=== PATIENT | male | born 1995 | race Native Hawaiian/Other Pacific Islander ===

== ENCOUNTER 2018-09-29 11:51 | Day surgery (SDC) | payer BC ==
[2018-09-26 11:25] LABS: BASOPHILS % (AUTO) 0.4 % (0-1); EOSINOPHILS # (AUTO) 0.1 X10'3 (0-0.9); EOSINOPHILS % (AUTO) 1.2 % (0-6); LYMPHOCYTES # (AUTO) 1.6 X10'3 (1.1-4.8); LYMPHOCYTES % (AUTO) 29.2 % (21-51); MEAN CORPUSCULAR HEMOGLOBIN 29.8 PG (27.0-31.0); MEAN CORPUSCULAR HGB CONC 34.1 g/dL (33.0-36.5); MEAN CORPUSCULAR VOLUME 87.3 FL (78-98); MEAN PLATELET VOLUME 8.3 FL (7.4-10.4); MONOCYTES # (AUTO) 0.5 X10'3 (0-0.9); MONOCYTES % (AUTO) 9.4 % (2-12); NEUTROPHILS # (AUTO) 3.4 X10'3 (1.8-7.7); NEUTROPHILS % (AUTO) 59.8 % (42-75); PRE OP HEMOGLOBIN 17.4 g/dL (14.0-17.9); PRE OP PLATELET COUNT 219 X10'3 (140-440); RED BLOOD COUNT 5.84 X10'6 (4.70-6.10); RED CELL DISTRIBUTION WIDTH 13.6 % (11.5-14.5)
[2018-09-29] VITALS (17 sets, daily range): BP systolic 99–140; BP diastolic 51–85
[~2018-09-29] VITALS: Ht 180.3 cm; Wt 77.1 kg
[~2018-09-29 11:51] MED LIST: BUPIVAcaine/PF 2.5 mg/ml (0.25%) 30ml vial ONE; NO HOME MEDS
[2018-09-29] MEDS ORDERED: famotidine 20mg tablet PO ONE (12:00)
[2018-09-29] MEDS ORDERED: VANCOMYCIN INJ 1000 MG in NORMAL SALINE 250ml IV.SOLN IV ONE (12:00)
[2018-09-29] MEDS ORDERED: cefazolin/dext.iso 2gm/100 ML IV ONE (12:00)
[2018-09-29] MEDS ORDERED: vancomycin inj 1,500 MG in normal saline 300ml IV soln IV ONE (12:00)
[2018-09-29] MEDS: ringers solution, lacted 1,000 ML IV SCH ×2 (12:31→16:40)
[2018-09-29] MEDS ORDERED: dexamethasone sod phosphate 10mg/ml inj ONE (12:58)
[2018-09-29] MEDS ORDERED: sevoflurane 250ml liquid IH ONE (12:58)
[2018-09-29] MEDS ORDERED: LIDOcaine 1%/PF 5ML 10 MG/ML VIAL ONE (12:58)
[2018-09-29] MEDS ORDERED: midazolam 2 mg/2 ml injection ONE (13:03)
[2018-09-29] MEDS ORDERED: fentaNYL/PF 50MCG/1 ML 2ML syringe ONE (13:03)
[2018-09-29] MEDS ORDERED: ondansetron/PF 4mg/2ml inj ONE (13:10)
[2018-09-29] MEDS ORDERED: propofol inj 20 ML IV ONE (13:25)
[2018-09-29] MEDS ORDERED: ringers solution, lacted 1,000 ML IV SCH (13:36)
[2018-09-29] MEDS ORDERED: morphine 4 MG/ML inj SYRINge IV PRN ×2 (13:40)
[2018-09-29] MEDS ORDERED: ondansetron/PF 4mg/2ml inj IV PRN ×2 (13:40→15:35)
[2018-09-29] MEDS ORDERED: hydrALAZINE 20mg/ml inj. IV PRN (13:40)
[2018-09-29] MEDS ORDERED: labetalol 20mg/4ml (5mg/ml) syringe IV PRN (13:40)
[2018-09-29] MEDS ORDERED: meperidine/PF 25mg/ml syringe IV PRN ×2 (13:40)
[2018-09-29] MEDS ORDERED: ketorolac trometh. 30mg/ml inj. ONE (13:44)
[2018-09-29] MEDS ORDERED: Thrombin (Bovine) 5,000 unit vial TP ONE (14:35)
[2018-09-29] MEDS ORDERED: gelatin sponge, absorbable (Gelfoam 100) sponge TP ONE (14:37)
[2018-09-29] MEDS ORDERED: meperidine/PF 50mg/ml syringe ONE (14:51)
--- NOTE | 2018-09-29 15:20 | NUR ---
Received from OR via BED, accompanied by Anesthesiologist DR VASQUEZ--- and report given by Anesthesiolgist. PATIENT A&OX4, DENIES PAIN, V/S WNL, NEUROVASCULAR CHECKS INTACT, 20G PIV LUE, SCD ON, DRESSING SPLINT TO RUPankaj CDI
[2018-09-29] MEDS ORDERED: HYDROmorphone inj. 0.5 MG/0.5 ML DISP.SYRIN IV PRN (15:35)
[2018-09-29] MEDS ORDERED: HYDROcodone/acetaminophen 10/325mg tab PO PRN ×2 (15:35)
[2018-09-29] MEDS ORDERED: acetaminophen 325mg tablet PO PRN (15:35)
[2018-09-29] MEDS ORDERED: diphenhydrAMINE 25mg capsule PO PRN ×2 (15:35)
[2018-09-29] MEDS ORDERED: magnesium hydroxide 30ml (MOM) UD suspension PO PRN (15:35)
[2018-09-29] MEDS ORDERED: bisacodyl 10mg suppository rectal RC PRN (15:35)
--- NOTE | 2018-09-29 16:20 | NUR ---
PATIENT A&OX4, DENIES PAIN, V/S WNL, NEUROVASCULAR CHECKS INTACT, 20G PIV LUE, SCD ON, DRESSING SPLINT TO RUE CDI. PATIENT TAKEN TO ORTHO WITH ALL BELONGINGS AND HOOKED UP TO MONITORS IN ROOM AND REPORT GIVEN TO RN WHO HAS TAKEN OVER PATIENT CARE.
[2018-09-29] MEDS: ceFAZolin 1GM/D5W- ADD-VANTAGE 50 ML IV SCH (17:30)
[2018-09-29] MEDS ORDERED: vancomycin/NS 1 GM ADD-VANTAGE 250 ML IV SCH (20:00)
[2018-09-29] MEDS ORDERED: sennosides 8.6mg tablet PO SCH (21:00)
[2018-09-30] MEDS: ceFAZolin 1GM/D5W- ADD-VANTAGE 50 ML IV SCH (04:09)
[2018-09-30] MEDS ORDERED: HYDR-3972 PO (09:26)
== END 2018-09-30 10:00 | disposition home or self-care (01) ==
LOC: PAS 11:51 → ORTHO 4S 16:25 → PAS 09-30 10:00
PROVIDERS: ATTEND Orthopaedic Surgery
DX: S52.371A Galeazzi's fracture of right radius, initial encounter for closed fracture (principal); W19.XXXA Unspecified fall, initial encounter; Y93.89 Activity, other specified; Y92.89 Other specified places as the place of occurrence of the external cause; Y99.8 Other external cause status
CPT/HCPCS: 25515; 36415; 82948; 85025; A6223; C1713; J0690; J1100; J1885; J2175; J2250; J2405; J2704; J3010; J3370; J3490; J7120; A4618; A6449; A7000; G0378